=== PATIENT | female | born 1975 | race African-American/Black ===

== ENCOUNTER 2017-07-21 02:14 | Emergency (ER) | payer MEDICAID ==
[~2017-07-21] VITALS: Ht 175.3 cm; Wt 52.6 kg
[2017-07-21] MEDS ORDERED: IBUPROFEN 800 MG TAB PO ONE (04:15)
[2017-07-21] MEDS ORDERED: CYCLOBENZAPRINE HCL 10 MG TAB PO ONE (04:30)
[2017-07-21 04:49] VITALS: BP 130/74
== END 2017-07-21 04:48 | disposition home or self-care (01) ==
LOC: EDBD 02:14 → ER 02:21
DX: S16.1XXA Strain of muscle, fascia and tendon at neck level, initial encounter (principal); S20.229A Contusion of unspecified back wall of thorax, initial encounter; S40.011A Contusion of right shoulder, initial encounter; S00.83XA Contusion of other part of head, initial encounter; Z88.8 Allergy status to other drugs, medicaments and biological substances; Y08.89XA Assault by other specified means, initial encounter; Y93.89 Activity, other specified; Y99.8 Other external cause status; Y92.89 Other specified places as the place of occurrence of the external cause
CPT/HCPCS: 72040; 72070; 73030